=== PATIENT | male | born 1965 | race Caucasian/White ===

== ENCOUNTER → 2023-11-06 15:16 | Outpatient (REF) | payer OTHER, SELFPAY | LOC: RAD 15:16 | PROVIDERS: ATTENDING PHYSICIAN Nurse Practitioner | DX: R09.89 Other specified symptoms and signs involving the circulatory and respiratory systems (principal) | CPT/HCPCS: 76770 ==

== ENCOUNTER → 2024-06-24 13:59 | Outpatient (REF) | payer OTHER, SELFPAY | LOC: HWRAD 13:59 | DX: M25.511 Pain in right shoulder (principal) | CPT/HCPCS: 73030 ==

== ENCOUNTER → 2024-08-14 07:16 | Outpatient (REF) | payer OTHER, SELFPAY | LOC: MRI 3T 07:16 | DX: M25.511 Pain in right shoulder (principal) | CPT/HCPCS: 73221 ==